=== PATIENT | female | born 1965 | race African-American/Black ===

== ENCOUNTER 2019-03-02 08:00 | Outpatient (CLI) | payer MEDICAID | END 2019-03-02 08:01 | disposition home or self-care (01) | LOC: LAB.N 08:00 | PROVIDERS: ATTEND Physician Assistant Medical | DX: Z53.9 Procedure and treatment not carried out, unspecified reason (principal) | CPT/HCPCS: 36415; 80053; 80061; 83721; 84443; 85025 ==

== ENCOUNTER 2019-03-04 08:00 | Outpatient (CLI) | payer MEDICAID ==
[2019-03-04 13:00] LABS: BASOPHILS % (AUTO) 0.5 %; EOSINOPHILS # (AUTO) 0.3 10^3/uL (0.0-0.7); EOSINOPHILS % (AUTO) 7.3 %; HGB - HEMOGLOBIN 13.7 g/dL (12.0-16.0); LYMPHOCYTES # (AUTO) 1.7 10^3/uL (1.5-3.5); LYMPHOCYTES % (AUTO) 40.3 %; MEAN CORPUSCULAR HEMOGLOBIN 30.9 pg (27.0-31.0); MEAN CORPUSCULAR HGB CONC 32.7 g/dL (32.0-36.0); MEAN CORPUSCULAR VOLUME 94.6 fL (81.0-99.0); MONOCYTES # (AUTO) 0.4 10^3/uL (0.0-1.0); MONOCYTES % (AUTO) 9.1 %; NEUTROPHILS # (AUTO) 1.8 10^3/uL (1.5-6.6); NEUTROPHILS % (AUTO) 42.6 %; PLT - PLATELET COUNT 300 10^3/uL (130-450); RED BLOOD COUNT 4.43 10^6/uL (4.20-5.40); RED CELL DISTRIBUTION WIDTH 13.2 % (12.0-15.0); WHITE BLOOD COUNT 4.3 x10^3/uL (4.8-10.8)
[2019-03-04 17:30] LABS: ALBUMIN 3.9 g/dL (3.2-5.5); ALBUMIN/GLOBULIN RATIO 1.1 (1.0-2.2); ALKALINE PHOSPHATASE 175 IU/L (42-121); ALT ALANINE AMINOTRANSFERASE 67 IU/L (10-60); AST ASPARTATE AMINOTRANSFERASE 69 IU/L (10-42); BILIRUBIN,TOTAL 1.3 mg/dL (0.2-1.0); BUN - BLOOD UREA NITROGEN 11 mg/dL (6-20); CALCIUM 9.7 mg/dL (8.5-10.3); CARBON DIOXIDE - CO2 29 mmol/L (21-32); CHLORIDE 101 mmol/L (101-111); CHOL/HDL RATIO 4.6 (<4.4); CHOLESTEROL 315 mg/dL; CREATININE 0.8 mg/dL (0.4-1.0); GFR - MDRD 90 (>89); GLUCOSE 93 mg/dL (70-100); HDL CHOLESTEROL 68 mg/dL; LDL CHOLESTEROL,CALCULATED 228 mg/dL; LDL/HDL RATIO 3.4 (<4.4); SODIUM 141 mmol/L (135-145); TOTAL PROTEIN 7.5 g/dL (6.7-8.2); VLDL CHOLESTEROL 19 mg/dL
== END 2019-03-04 08:01 | disposition home or self-care (01) ==
LOC: LAB.N 08:00
PROVIDERS: ATTEND Physician Assistant Medical
DX: I10 Essential (primary) hypertension (principal); E66.9 Obesity, unspecified
CPT/HCPCS: 36415; 80053; 80061; 83721; 84443; 85025

== ENCOUNTER 2019-03-07 13:41 | Outpatient (CLI) | payer MEDICAID ==
--- NOTE | 2019-03-08 08:25 | Mammography Report ---
Reason: SCREENING MAMMO Procedure Date: 03/07/2019 Accession Number: [id number] / [id number] Procedure: MGN - Screening Mammo Dig Bilat CPT Code: FULL RESULT: EXAM: Screening Mammo Dig Bilat DATE: 03/07/2019 2:19 PM CLINICAL HISTORY: Screening encounter. History of early menses. Family history of breast cancer in a sister at the age of 43. Baseline mammogram. TECHNIQUE: (B) - Bilateral CC, laterally exaggerated CC, MLO views were obtained. Cleavage view was obtained COMPARISON: None PARENCHYMAL PATTERN: (A) - The breast(s) demonstrate(s) scattered fibroglandular densities. FINDINGS: In the right posterior central breast 17 cm from the nipple on MLO projection and 13 cm from the nipple on CC projection is a hypodense nodule with calcifications which requires spot magnification views and potentially ultrasound for characterization, nodule is partially obscured, no more than 5 mm in size. In the left upper outer breast along the axillary tail region, 11.6 cm from the nipple on the MLO projection and 19 cm from the nipple on the CC projection is a isodense relatively well circumscribed 6 mm nodule which requires additional spot views and potentially ultrasound for clarification. IMPRESSION: Incomplete examination. BI-RADS category 0. RECOMMENDATION: (ADDMU) - Additional views using both Mammography and Ultrasound recommended. Right spot magnification views and left spot views, ultrasound potentially on both sides. BI-RADS CATEGORY: (0) - Incomplete Examination - need additional evaluation. STANDARD QUALIFYING STATEMENTS: 1. This examination was not reviewed with the aid of Computer-Aided Detection (CAD). 2. A negative or benign imaging report should not preclude biopsy if clinically suspicious findings are present. 3. Dense breasts may obscure an underlying neoplasm. 4. This examination was reviewed without the aid of 3D breast imaging (tomosynthesis).
== END 2019-03-07 13:42 | disposition home or self-care (01) ==
LOC: DI.N 13:41
PROVIDERS: ATTEND Physician Assistant Medical
DX: Z12.31 Encounter for screening mammogram for malignant neoplasm of breast (principal); Z80.3 Family history of malignant neoplasm of breast
CPT/HCPCS: 77067

== ENCOUNTER 2019-03-18 10:05 | Outpatient (CLI) | payer MEDICAID ==
--- NOTE | 2019-03-18 14:31 | Mammography Report ---
Reason: ABNORMAL MAMMOGRAM Procedure Date: 03/18/2019 Accession Number: [id number] / [id number] Procedure: [facility] - Diag Special Views Dig Bilat CPT Code: FULL RESULT: EXAM: Diag Special Views Dig Bilat DATE: 03/18/2019 11:35 AM CLINICAL HISTORY: Diagnostic examination. The patient is recalled from screening examination for left-sided nodule and right-sided calcifications. TECHNIQUE: (B) - Bilateral right magnified CC, left spot CC, left spot MLO, right ML and left ML and right magnified ML views are obtained. Focused left breast ultrasound is performed. COMPARISON: 03/07/2019. PARENCHYMAL PATTERN: (A) - The breast(s) demonstrate(s) scattered fibroglandular densities. FINDINGS: Spot magnification views further characterize the left lateral breast nodule as well circumscribed, isodense and potentially centrally lucent. Focused left breast ultrasound of the lateral left breast reveals normal appearing lymph node 22 cm from the nipple which potentially corresponds to the mammographic finding. No suspicious findings are made sonographically. These findings are typically benign. In the right breast, spot magnification views demonstrate the initially identified focus of calcifications and a nearby second grouping of calcifications both of which are formally indeterminate but probably benign given absence of associated architectural distortion or soft tissue nodule component. There are no suspicious masses, calcifications, or areas of distortion. IMPRESSION: Left breast: Benign findings. BI-RADS category 2. Right breast: Probably Benign. BI-RADS category 3. RECOMMENDATION: (6MOS) - Recommend 6 month follow-up exam. Spot magnification views of the right breast. BI-RADS CATEGORY: Left breast: BI-RADS Category 2, right breast: BI-RADS Category 3 STANDARD QUALIFYING STATEMENTS: 1. This examination was not reviewed with the aid of Computer-Aided Detection (CAD). 2. A negative or benign imaging report should not preclude biopsy if clinically suspicious findings are present. 3. Dense breasts may obscure an underlying neoplasm. 4. This examination was reviewed with the aid of 3D breast imaging (tomosynthesis).
== END 2019-03-18 10:06 | disposition home or self-care (01) ==
LOC: DI 10:05
PROVIDERS: ATTEND Physician Assistant Medical
DX: R92.8 Other abnormal and inconclusive findings on diagnostic imaging of breast (principal)
CPT/HCPCS: 76642; 77062; 77066

== ENCOUNTER 2019-06-02 07:58 | Outpatient (CLI) | payer MEDICAID ==
[2019-06-02 12:41] LABS: BUN - BLOOD UREA NITROGEN 16 mg/dL (6-20); CALCIUM 9.9 mg/dL (8.5-10.3); CARBON DIOXIDE - CO2 32 mmol/L (21-32); CHLORIDE 102 mmol/L (101-111); CHOL/HDL RATIO 2.9 (<4.4); CHOLESTEROL 190 mg/dL; CREATININE 0.8 mg/dL (0.4-1.0); GFR - MDRD 90 (>89); GLUCOSE 91 mg/dL (70-100); HDL CHOLESTEROL 66 mg/dL; LDL CHOLESTEROL,CALCULATED 104 mg/dL; LDL/HDL RATIO 1.6 (<4.4); SODIUM 142 mmol/L (135-145); VLDL CHOLESTEROL 20 mg/dL
== END 2019-06-02 07:59 | disposition home or self-care (01) ==
LOC: LAB.N 07:58
PROVIDERS: ATTEND Physician Assistant Medical
DX: I10 Essential (primary) hypertension (principal); E78.5 Hyperlipidemia, unspecified
CPT/HCPCS: 36415; 80048; 80061; 83721

== ENCOUNTER 2019-10-26 12:58 | Outpatient (CLI) | payer MEDICAID ==
--- NOTE | 2019-10-26 15:18 | Mammography Report ---
Reason: ABN MAMMO - 6 MONTH F U Procedure Date: 10/26/2019 Accession Number: [id number] / [id number] Procedure: JACEY - Diagnostic Dig RT CPT Code: Final Report FULL RESULT: EXAM: Diagnostic Dig RT DATE: 10/26/2019 2:13 PM CLINICAL HISTORY: Six-month follow-up right breast microcalcifications. TECHNIQUE: (R) - Right CC and MLO views were obtained. COMPARISON: 03/18/2019 and 03/07/2019 PARENCHYMAL PATTERN: (A) - The breasts demonstrate scattered fibroglandular densities bilaterally. FINDINGS: 2 subcentimeter clusters of microcalcifications are seen in the right 12:00 position approximately 7 and 18 cm from the nipple. The more posterior calcifications have been previously magnified and appear to have increased slightly both in number and pleomorphism. The anterior cluster has not been previously magnified but has a similar pleomorphic appearance. No associated soft tissue mass is seen. IMPRESSION: Suspicious findings. BI-RADS category 4. Suggest stereotactic core biopsy of the 2 microcalcification clusters in the right breast. Discussed with the patient. RECOMMENDATION: (BIOPSY) - Stereotactic core biopsy of 2 clusters of right breast microcalcification is suggested. BI-RADS CATEGORY: (4) - Suspicious. Results called to Karsten Ward PA-C 3:15 PM 10/26/2019 STANDARD QUALIFYING STATEMENTS: 1. This examination was not reviewed with the aid of Computer-Aided Detection (CAD). 2. A negative or benign imaging report should not preclude biopsy if clinically suspicious findings are present. 3. Dense breasts may obscure an underlying neoplasm. 4. This examination was reviewed with the aid of 3D breast imaging (tomosynthesis).
== END 2019-10-26 12:59 | disposition home or self-care (01) ==
LOC: DI 12:58
PROVIDERS: ATTEND Physician Assistant Medical
DX: R92.0 Mammographic microcalcification found on diagnostic imaging of breast (principal)

== ENCOUNTER 2019-12-07 11:46 | Outpatient (CLI) | payer MEDICAID ==
[~2019-12-07 11:46] MED LIST: BUFFERED LIDOCAINE 10 ML SYRINGE ONE
[2019-12-07] MEDS ORDERED: BUFFERED LIDOCAINE 10 ML SYRINGE ONE ×2 (12:00→14:12)
--- NOTE | 2019-12-07 14:38 | Mammography Report ---
Reason: RIGHT BREAST CALCS Procedure Date: 12/07/2019 Accession Number: [id number] / [id number] Procedure: JACEY - Stereotactic Core BX RT CPT Code: Final Report FULL RESULT: EXAM: Stereotactic Core BX RT, Stereotactic Core BX RT DATE: 12/07/2019 2:27 PM CLINICAL HISTORY: RIGHT BREAST CALCS COMPARISON: 10/26/2019. CLINICAL DATA: Target calcifications measuring less than 1 cm in the 12 o'clock axis of the right breast approximately 7 cm from the nipple. Target calcifications measuring less than 1 cm in the 12 o'clock axis of the right breast approximately 18 cm from the nipple. Informed consent was obtained. The patient was positioned in the mammography machine with biopsy attachment. Targeting imaging was obtained and the lesion was selected. The breast was approached from the lateral aspect. Using standard aseptic technique, 1% buffered lidocaine was injected into the breasts for local anesthesia. A small leandro was made in the skin with a #11 blade. A 9-gauge vacuum-assisted device was advanced into the breasts towards the target and confirmatory imaging was obtained to verify targeting and 16 specimens were obtained. Specimen radiography was performed which demonstrated the presence of calcifications in the sample. A biopsy marker clip was then placed into the biopsy cavity. The biopsy device was subsequently removed from the breast. Hemostasis was achieved. The same procedure was repeated for the second site using the lateral approach. Follow-up 3-D mammography was then performed to verify biopsy targeting and clip placement at both sites. The mammography showed expected clip position and postbiopsy changes from both biopsy sites . The wound was dressed and ice applied. The patient was observed for approximately 15 minutes, then discharged from the diagnostic imaging Department in stable condition following instructions on wound care and obtaining biopsy results. The tissue was sent for histologic analysis. IMPRESSION: Stereotactic biopsy of calcifications at 2 sites in the right breast. RADIA
[2019-12-07] MEDS ORDERED: BUFFERED LIDOCAINE 10 ML SYRINGE IU ONE (17:10)
== END 2019-12-07 11:47 | disposition home or self-care (01) ==
LOC: DI 11:46
PROVIDERS: ATTEND Physician Assistant Medical
DX: R92.0 Mammographic microcalcification found on diagnostic imaging of breast (principal)
CPT/HCPCS: 19081; 19082

== ENCOUNTER 2020-01-31 17:00 | Outpatient (CLI) | payer MEDICAID ==
[2020-01-31 18:45] LABS: ALBUMIN 4.4 g/dL (3.2-5.5); ALBUMIN/GLOBULIN RATIO 1.2 (1.0-2.2); BILIRUBIN,TOTAL 1.2 mg/dL (0.2-1.0); CALCIUM 10.1 mg/dL (8.5-10.3); CREATININE 0.8 mg/dL (0.4-1.0)
== END 2020-01-31 23:59 | disposition home or self-care (01) ==
LOC: LAB.WCP 17:00
PROVIDERS: ATTEND Family Medicine
DX: R74.8 Abnormal levels of other serum enzymes (principal)
CPT/HCPCS: 36415; 80053

== ENCOUNTER 2020-05-18 08:00 | Outpatient (CLI) | payer MEDICAID ==
[2020-05-18 18:46] LABS: ALBUMIN 4.1 g/dL (3.2-5.5); BILIRUBIN,DIRECT 0.1 mg/dL (0.1-0.5); BILIRUBIN,TOTAL 0.8 mg/dL (0.2-1.0); TOTAL PROTEIN 7.7 g/dL (6.7-8.2)
[2020-05-19 13:12] LABS: HEPATITIS B SURFACE ANTIGEN NON-REACTIVE (NON-REACTIVE); HEPATITIS C ANTIBODY NON-REACTIVE (NON-REACTIVE)
== END 2020-05-18 08:01 | disposition home or self-care (01) ==
LOC: LAB.WCP 08:00
PROVIDERS: ATTEND Family Medicine
DX: R74.8 Abnormal levels of other serum enzymes (principal)
CPT/HCPCS: 36415; 80076; 86317; 86704; 86709; 86803; 87340

== ENCOUNTER 2020-05-26 09:16 | Outpatient (CLI) | payer MEDICAID ==
--- NOTE | 2020-05-26 14:29 | Ultrasound Report ---
PROCEDURE: Abdomen Complete INDICATIONS: ELEVATED LIVER ENZYMES TECHNIQUE: Real-time scanning was performed of the abdominal and retroperitoneal organs, with image documentatio n. COMPARISON: None. FINDINGS: Liver: Liver is normal in size and heterogeneous in echotexture, with a coarsened echotexture. Gallbladder: No gallstones or significant sludge can be seen. The gallbladder wall does not appear th ickened. There is no specific pericholecystic fluid. The sonographic Wang's sign is negative. Biliary ducts: Intrahepatic bile ducts are dilated. Extrahepatic bile duct caliber 14 mm. Normal i s 6-7 mm or less in diameter, or 10 mm or less post-cholecystectomy. Pancreas: Visualized portions of the pancreas are sonographically normal. Spleen: Spleen is normal in size and homogeneous in echotexture. Within the posterior lateral splee n, there is a 5 mm hyperechoic focus seen. Kidneys: Kidneys are normal in size and echotexture. Right kidney measures 11.8 cm long; left kidne y measures 11.2 cm long. No hydronephrosis or nephrolithiasis. No solid masses. Aorta: Visualized aorta is normal in caliber at less than 3 cm. Iliacs: Proximal common iliac arteries are normal in caliber at less than 2.5 cm. IVC: Intrahepatic inferior vena cava is patent. Miscellaneous: No free abdominal fluid. IMPRESSION: Dilated common bile duct measuring up to 14 mm. If clinically appropriate, please consider a dedicate d MRCP for further evaluation (assuming that there is no contraindication). Increased liver echogenicity is seen. This is nonspecific, yet it is most commonly attributed to fatt y infiltration. 5 mm hyperechoic focus within the posterior lateral spleen. The clinical significance of this is unce rtain. Reviewed by: Kevin Tellez MD on 05/26/2020 1:27 PM TEJAS Approved by: Kevin Tellez MD on 05/26/2020 1:27 PM AKDANTE Station ID: [id number]
== END 2020-05-26 09:17 | disposition home or self-care (01) ==
LOC: DI 09:16
PROVIDERS: ATTEND Family Medicine
DX: K83.8 Other specified diseases of biliary tract (principal); R93.2 Abnormal findings on diagnostic imaging of liver and biliary tract; R93.5 Abnormal findings on diagnostic imaging of other abdominal regions, including retroperitoneum
CPT/HCPCS: 76700

== ENCOUNTER 2020-06-23 08:15 | Outpatient (CLI) | payer MEDICAID ==
--- NOTE | 2020-06-25 11:00 | MRI Report ---
PROCEDURE: MRCP W/O INDICATIONS: ELEVATED LIVER ENZYMES CONTRAST: TECHNIQUE: Coronal ultra fast SE through the abdomen, axial 2-D spoiled GE in- and [id number], and breath-hold T2 FSE with fat saturation through the biliary system and pancreas. Oblique coronal and axial thin- slice ultra fast SE, radial thick-slab ultra fast SE centered on the extrahepatic bile ducts. COMPARISON: Prior ultrasound 05/26/2020 documenting a 1.4 cm common bile duct. FINDINGS: Image quality: Diagnostic, but reduced in anatomic detail by body habitus.. Pancreas and biliary system: Intra- and extra-hepatic biliary ducts are both dilated, to mildly grea ter degree than seen by ultrasound approximately one month ago. The common duct measures up to 1.6-1. 7 cm in maximal dimension, and the cystic duct also is dilated as are the intrahepatic ducts both on the right and left. At the distal common duct 3 separate pulse sequences appear to show a 2 x 3 mm ca lculus dependently positioned within the common duct above the level of the ampulla. This is best see n on the source coronal acquisition images from which the mixed projections are generated. There is, however, what appears to be shouldering of the distal common duct with a thin exit point measuring on ly approximately 2 mm in diameter versus 1.6 cm above. This also is best seen on the coronal source c holangiographic MR imaging just below the level of the intraluminal calculus. Pancreas is normal in morphology, without adjacent soft tissue edema. Pancreatic duct is normal in caliber, without develo pmental anomalies. Gallbladder is not seen to contain a intraluminal calculus. Other solid organs: Liver and spleen are normal in size. No adrenal nodules. Both kidneys are norm al in size, without hydronephrosis. Nodes and vessels: No retroperitoneal or mesenteric adenopathy by size criteria. Aorta and inferior vena cava are normal in size. Bowel and peritoneum: Unenhanced bowel loops are normal in caliber. No free fluid. Lung bases: No basal pleural effusions. Heart size is normal. Bones and soft tissues: No ventral hernias. Bone marrow is of normal overall signal. IMPRESSION: 1. Resolution of cholangiographic imaging is somewhat limited by body habitus. There does, however, a ppear to be definite abnormal common bile duct and intrahepatic biliary distention with reference to the prior ultrasound from one month ago. 2. Within the distal common duct there appears to be a 2 x 3 mm intraluminal calculus. Currently at t angie of imaging this calculus does not appear impacted within the distal common duct, however. 3. A second potential etiology of the increasing biliary distention in this patient is what appears t o be "shouldering" of the distal common duct through which a 2 mm lumen extends for an 8 mm craniocau dad length. This raises concern for presence of a distal common duct neoplasm either at the ductal mu cosal level or possibly at the pancreatic head level immediately adjacent. 4. High-resolution pancreatic protocol CT scanning without and with intravenous contrast likely is wa rranted in this patient given the findings discussed above and the progression of disease over the pr ior month. Reviewed by: Ronnie Pino MD on 06/25/2020 10:59 AM PST Approved by: Ronnie Pino MD on 06/25/2020 10:59 AM PST Station ID: [id number]
== END 2020-06-23 08:16 | disposition home or self-care (01) ==
LOC: DI 08:15
PROVIDERS: ATTEND Family Medicine
DX: R93.2 Abnormal findings on diagnostic imaging of liver and biliary tract (principal)
CPT/HCPCS: 74181

== ENCOUNTER 2020-07-21 09:26 | Outpatient (CLI) | payer MEDICAID ==
[2020-07-21] MEDS ORDERED: IOVERSOL 320 100 ML VIAL IVP ONE ×2 (09:52→10:33)
[2020-07-21 10:00] LABS: CREATININE 0.9 mg/dL (0.4-1.0)
--- NOTE | 2020-07-21 11:29 | CT Report ---
PROCEDURE: ABDOMEN W/WO INDICATIONS: MASS OF PANCREAS, CHOLEDOCHOLITHIASIS CONTRAST: IV CONTRAST: Optiray 320 ml: 100 PO CONTRAST: *NO PO CONTRAST TECHNIQUE: 4 phase scanning was performed. After the administration of intravenous contrast, 5 mm thick section s acquired from the diaphragm to the symphysis. 5 mm coronal and sagittal reformats were acquired. For radiation dose reduction, the following was used: automated exposure control, adjustment of mA a nd/or kV according to patient size. COMPARISON: MRCP 06/23/2020. Abdominal ultrasound 05/26/2020. FINDINGS: Image quality: Excellent. Lung bases: Suspect mild bibasilar atelectasis. No pleural effusion. Heart size is normal. Liver: Noncirrhotic morphology. Suspect hepatic steatosis. No focal lesion. Other solid organs: Gallbladder is not distended. No calcified gallstones. There is persistent intr a and extrahepatic biliary ductal dilatation. CBD measures 1.4 cm, (15/16), remeasured on MRCP 1.3 cm . There is an abrupt transition of the CBD at the level of the pancreatic head. No obvious mass or ca lcified stone. The pancreatic duct is not dilated. There is minimal ill-defined hypodensity in the re gion of the sphincter of Rolo, (3/32), corresponding to minimal T2 hyperintensity on the prior MRI. P ancreatic enhancement otherwise appears uniform. No peripancreatic fluid collection. Spleen is normal in size and enhancement. Small splenule. No adrenal nodules. Both kidneys demonstra te normal size and enhancement, without hydronephrosis or nephrolithiasis. Nodes and vessels: No retroperitoneal or mesenteric adenopathy by size criteria. Aorta and inferior vena cava are normal in size. Conventional and patent hepatic arterial anatomy. Bowel and peritoneum: Unenhanced bowel loops are normal in caliber. No free fluid or air. Bones: No suspicious bony lesions. Mild DDD. No vertebral body compression fractures. Miscellaneous: No ventral hernias. IMPRESSION: 1. Persistent similar intra and extra hepatic ductal or ductal dilatation. Abrupt caliber transition of the CBD. Minimal hypodensity in the region of the sphincter of Rolo. Findings could be due to bili sera/pancreatic neoplasm, annular pancreas, less likely noncalcified stone. -Recommend ERCP for further evaluation. 2. No focal hepatic lesion. No adenopathy. 3. No pancreatic ductal dilatation seen. Reviewed by: Clayton Toro MD on 07/21/2020 10:28 AM NILSA Approved by: Clayton Toro MD on 07/21/2020 10:28 AM [facility] Station ID: [id number]
== END 2020-07-21 09:27 | disposition home or self-care (01) ==
LOC: LAB 09:26
PROVIDERS: ATTEND Family Medicine
DX: K83.8 Other specified diseases of biliary tract (principal); R93.2 Abnormal findings on diagnostic imaging of liver and biliary tract; K86.89 Other specified diseases of pancreas; K80.50 Calculus of bile duct without cholangitis or cholecystitis without obstruction
CPT/HCPCS: 74170; 82565; Q9967

== ENCOUNTER 2020-08-23 08:00 | Outpatient (CLI) | payer MEDICAID | END 2020-08-23 23:59 | disposition home or self-care (01) | LOC: LAB.R 08:00 | PROVIDERS: ATTEND Physician Assistant | DX: Z12.11 Encounter for screening for malignant neoplasm of colon (principal) | CPT/HCPCS: 82274 ==

== ENCOUNTER 2020-11-09 08:00 | Outpatient (CLI) | payer MEDICAID ==
[2020-11-09 18:34] LABS: BASOPHILS % (AUTO) 0.6 %; EOSINOPHILS # (AUTO) 0.2 10^3/uL (0.0-0.7); HGB - HEMOGLOBIN 13.7 g/dL (12.0-16.0); LYMPHOCYTES # (AUTO) 2.4 10^3/uL (1.5-3.5); LYMPHOCYTES % (AUTO) 49.8 %; MEAN CORPUSCULAR HEMOGLOBIN 31.4 pg (27.0-31.0); MEAN CORPUSCULAR HGB CONC 33.4 g/dL (32.0-36.0); MEAN CORPUSCULAR VOLUME 93.8 fL (81.0-99.0); MEAN PLATELET VOLUME 11.4 fL (7.9-10.8); MONOCYTES # (AUTO) 0.3 10^3/uL (0.0-1.0); MONOCYTES % (AUTO) 6.4 %; NEUTROPHILS # (AUTO) 1.8 10^3/uL (1.5-6.6); NEUTROPHILS % (AUTO) 38.2 %; PLT - PLATELET COUNT 230 10^3/uL (130-450); RED BLOOD COUNT 4.37 10^6/uL (4.20-5.40); RED CELL DISTRIBUTION WIDTH 13.2 % (12.0-15.0); WHITE BLOOD COUNT 4.8 x10^3/uL (4.8-10.8)
[2020-11-09 19:06] LABS: ALBUMIN 4.3 g/dL (3.2-5.5); ALBUMIN/GLOBULIN RATIO 1.4 (1.0-2.2); CALCIUM 9.9 mg/dL (8.5-10.3); POTASSIUM 3.9 mmol/L (3.5-5.0); TOTAL PROTEIN 7.4 g/dL (6.7-8.2)
== END 2020-11-09 23:59 | disposition home or self-care (01) ==
LOC: LAB.WCP 08:00
DX: K83.9 Disease of biliary tract, unspecified (principal)
CPT/HCPCS: 36415; 80053; 82378; 85025; 86301

== ENCOUNTER 2020-12-04 16:28 | Outpatient (CLI) | payer MEDICAID | END 2020-12-04 16:29 | disposition home or self-care (01) | LOC: COV 16:28 | PROVIDERS: ATTEND Family Medicine | DX: Z01.812 Encounter for preprocedural laboratory examination (principal); K83.8 Other specified diseases of biliary tract; Z20.822 Contact with and (suspected) exposure to COVID-19 ==

== ENCOUNTER 2020-12-25 08:00 | Outpatient (CLI) | payer MEDICAID ==
[2020-12-25 11:57] LABS: BASOPHILS % (AUTO) 0.4 %; EOSINOPHILS # (AUTO) 0.7 10^3/uL (0.0-0.7); EOSINOPHILS % (AUTO) 15.9 %; HCT - HEMATOCRIT 37.7 % (37.0-47.0); HGB - HEMOGLOBIN 12.7 g/dL (12.0-16.0); LYMPHOCYTES # (AUTO) 1.6 10^3/uL (1.5-3.5); LYMPHOCYTES % (AUTO) 34.4 %; MEAN CORPUSCULAR HEMOGLOBIN 31.6 pg (27.0-31.0); MEAN CORPUSCULAR HGB CONC 33.7 g/dL (32.0-36.0); MEAN CORPUSCULAR VOLUME 93.8 fL (81.0-99.0); MEAN PLATELET VOLUME 10.4 fL (7.9-10.8); MONOCYTES # (AUTO) 0.4 10^3/uL (0.0-1.0); MONOCYTES % (AUTO) 8.1 %; NEUTROPHILS # (AUTO) 1.9 10^3/uL (1.5-6.6); PLT - PLATELET COUNT 342 10^3/uL (130-450); RED BLOOD COUNT 4.02 10^6/uL (4.20-5.40); RED CELL DISTRIBUTION WIDTH 13.5 % (12.0-15.0); WHITE BLOOD COUNT 4.6 x10^3/uL (4.8-10.8)
[2020-12-25 12:36] LABS: ALKALINE PHOSPHATASE 157 IU/L (42-121); AST ASPARTATE AMINOTRANSFERASE 61 IU/L (10-42); CALCIUM 9.7 mg/dL (8.5-10.3); CARBON DIOXIDE - CO2 31 mmol/L (21-32); CHLORIDE 102 mmol/L (101-111); CHOLESTEROL 133 mg/dL; GLUCOSE 101 mg/dL (70-100); POTASSIUM 3.8 mmol/L (3.5-5.0); SODIUM 141 mmol/L (135-145)
[2020-12-25 12:43] LABS: ESTIMATED AVERAGE GLUCOSE 111 mg/dL (70-100); HEMOGLOBIN A1c% 5.5 % (4.27-6.07)
[2020-12-25 13:19] LABS: ALBUMIN 3.7 g/dL (3.2-5.5); ALBUMIN/GLOBULIN RATIO 1.1 (1.0-2.2); ALT ALANINE AMINOTRANSFERASE 79 IU/L (10-60); BILIRUBIN,TOTAL 0.8 mg/dL (0.2-1.0); BUN - BLOOD UREA NITROGEN 10 mg/dL (6-20); CHOL/HDL RATIO 3.2 (<4.4); CREATININE 0.8 mg/dL (0.4-1.0); GFR - MDRD 90 (>89); HDL CHOLESTEROL 41 mg/dL; LDL CHOLESTEROL,CALCULATED 71 mg/dL; LDL/HDL RATIO 1.7 (<4.4); TOTAL PROTEIN 7.2 g/dL (6.7-8.2); TRIGLYCERIDES 106 mg/dL; VLDL CHOLESTEROL 21 mg/dL
== END 2020-12-25 23:59 | disposition home or self-care (01) ==
LOC: LAB.WCP 08:00
PROVIDERS: ATTEND Family Medicine
DX: E78.5 Hyperlipidemia, unspecified (principal); R74.8 Abnormal levels of other serum enzymes; E66.9 Obesity, unspecified
CPT/HCPCS: 36415; 80053; 80061; 83036; 83721; 85025

== ENCOUNTER 2021-02-01 13:26 | Outpatient (CLI) | payer MEDICAID | END 2021-02-01 13:27 | disposition home or self-care (01) | LOC: COV 13:26 | PROVIDERS: ATTEND Family Medicine | DX: Z01.812 Encounter for preprocedural laboratory examination (principal); Z20.822 Contact with and (suspected) exposure to COVID-19 ==

== ENCOUNTER 2021-06-17 16:44 | Outpatient (CLI) | payer MEDICAID | END 2021-06-17 16:45 | disposition home or self-care (01) | LOC: COV 16:44 | PROVIDERS: ATTEND Family Medicine | DX: Z01.812 Encounter for preprocedural laboratory examination (principal); Z20.822 Contact with and (suspected) exposure to COVID-19 ==

== ENCOUNTER 2021-08-05 08:00 | Outpatient (CLI) | payer MEDICAID ==
[2021-08-05 17:43] LABS: BASOPHILS % (AUTO) 0.5 %; EOSINOPHILS # (AUTO) 0.3 10^3/uL (0.0-0.7); EOSINOPHILS % (AUTO) 6.8 %; HCT - HEMATOCRIT 44.9 % (37.0-47.0); HGB - HEMOGLOBIN 15.1 g/dL (12.0-16.0); LYMPHOCYTES # (AUTO) 1.9 10^3/uL (1.5-3.5); LYMPHOCYTES % (AUTO) 52.7 %; MEAN CORPUSCULAR HEMOGLOBIN 31.3 pg (27.0-31.0); MEAN CORPUSCULAR HGB CONC 33.6 g/dL (32.0-36.0); MEAN CORPUSCULAR VOLUME 93.2 fL (81.0-99.0); MEAN PLATELET VOLUME 11.2 fL (7.9-10.8); MONOCYTES # (AUTO) 0.2 10^3/uL (0.0-1.0); MONOCYTES % (AUTO) 6.3 %; NEUTROPHILS # (AUTO) 1.2 10^3/uL (1.5-6.6); NEUTROPHILS % (AUTO) 33.4 %; PLT - PLATELET COUNT 240 10^3/uL (130-450); RED BLOOD COUNT 4.82 10^6/uL (4.20-5.40); RED CELL DISTRIBUTION WIDTH 13.3 % (12.0-15.0); WHITE BLOOD COUNT 3.7 x10^3/uL (4.8-10.8)
[2021-08-05 17:50] LABS: ALBUMIN 4.2 g/dL (3.2-5.5); ALBUMIN/GLOBULIN RATIO 1.1 (1.0-2.2); BILIRUBIN,TOTAL 0.7 mg/dL (0.2-1.0); CALCIUM 9.8 mg/dL (8.5-10.3); CREATININE 0.7 mg/dL (0.4-1.0); POTASSIUM 3.7 mmol/L (3.5-5.0)
[2021-08-05 18:07] LABS: THYROID STIMULATING HORMONE 0.68 uIU/mL (0.34-5.60)
== END 2021-08-05 23:59 | disposition home or self-care (01) ==
LOC: LAB.WCP 08:00
PROVIDERS: ATTEND Family Medicine
DX: R74.8 Abnormal levels of other serum enzymes (principal); E04.1 Nontoxic single thyroid nodule; K85.90 Acute pancreatitis without necrosis or infection, unspecified
CPT/HCPCS: 36415; 80053; 84443; 85025

== ENCOUNTER 2022-12-23 15:39 | Outpatient (CLI) | payer MEDICAID ==
--- NOTE | 2022-12-25 11:21 | Mammography Report ---
BILATERAL DIGITAL SCREENING MAMMOGRAM 3D/2D: 12/23/2022 CLINICAL: Family history of breast cancer. Routine screening. Comparison is made to exams dated: 11/11/2021 mammogram, 10/26/2019 mammogram, 03/18/2019 mammogram, and 03/07/2019 mammogram - [facility]. There are scattered areas of fibroglandular density in both breasts (category b / 25%-50% glandular t issue). There are biopsy clips in the right breast. No significant masses, calcifications, or other findings are seen in either breast. There has been no significant interval change. IMPRESSION: NEGATIVE There is no mammographic evidence of malignancy. A 1 year screening mammogram is recommended. Based on the Tyrer Cuzick model (a risk assessment model) the patients lifetime risk is 18.7% and he r 10 year risk is 7.5%. According to the ACR, ACS, and NCCN guidelines, an annual breast MRI exam pauline ng with mammogram is recommended if the patients lifetime risk is 20% or greater. This exam was interpreted at Station ID: [id number]. NOTE: For mammograms, a report in lay terms will be sent to the patient. Approximately 15% of breast malignancies will not be visualized mammographically. In the management of a palpable breast mass, a negative mammogram must not discourage biopsy of a clinically suspicious lesion. Electronically Signed By: Clayton yusuf/zander:12/24/2022 13:58:18 letter sent: No_Letter ACR BI-RADS Category 1: Negative 3341F PARENCHYMAL PATTERN: (A) - The breast(s) demonstrate(s) scattered fibroglandular densities. BI-RADS CATEGORY: (1) - 1 Mammogram 20231224 1 year screening LATERALITY: (B)
== END 2022-12-23 15:40 | disposition home or self-care (01) ==
LOC: DI.N 15:39
DX: Z12.31 Encounter for screening mammogram for malignant neoplasm of breast (principal); Z80.3 Family history of malignant neoplasm of breast

== ENCOUNTER 2022-12-23 16:05 | Outpatient (CLI) | payer MEDICAID ==
[2022-12-23 17:48] LABS: BASOPHILS % (AUTO) 0.6 %; EOSINOPHILS # (AUTO) 0.2 10^3/uL (0.0-0.7); EOSINOPHILS % (AUTO) 4.5 %; HCT - HEMATOCRIT 42.1 % (37.0-47.0); HGB - HEMOGLOBIN 14.1 g/dL (12.0-16.0); LYMPHOCYTES # (AUTO) 2.7 10^3/uL (1.5-3.5); LYMPHOCYTES % (AUTO) 52.3 %; MEAN CORPUSCULAR HEMOGLOBIN 31.1 pg (27.0-31.0); MEAN CORPUSCULAR HGB CONC 33.5 g/dL (32.0-36.0); MEAN CORPUSCULAR VOLUME 92.7 fL (81.0-99.0); MEAN PLATELET VOLUME 10.9 fL (7.9-10.8); MONOCYTES # (AUTO) 0.3 10^3/uL (0.0-1.0); MONOCYTES % (AUTO) 5.7 %; NEUTROPHILS # (AUTO) 1.9 10^3/uL (1.5-6.6); NEUTROPHILS % (AUTO) 36.9 %; PLT - PLATELET COUNT 242 10^3/uL (130-450); RED BLOOD COUNT 4.54 10^6/uL (4.20-5.40); RED CELL DISTRIBUTION WIDTH 13.2 % (12.0-15.0); WHITE BLOOD COUNT 5.1 x10^3/uL (4.8-10.8)
[2022-12-23 21:16] LABS: ALBUMIN 4.2 g/dL (3.2-5.5); ALBUMIN/GLOBULIN RATIO 1.2 (1.0-2.2); ALKALINE PHOSPHATASE 78 IU/L (42-121); ALT ALANINE AMINOTRANSFERASE 37 IU/L (10-60); AST ASPARTATE AMINOTRANSFERASE 37 IU/L (10-42); BILIRUBIN,TOTAL 1.2 mg/dL (0.2-1.0); BUN - BLOOD UREA NITROGEN 16 mg/dL (6-20); CALCIUM 9.5 mg/dL (8.5-10.3); CARBON DIOXIDE - CO2 30 mmol/L (21-32); CHLORIDE 102 mmol/L (101-111); CHOL/HDL RATIO 2.6 (<4.4); CHOLESTEROL 169 mg/dL; CREATININE 0.9 mg/dL (0.4-1.0); GFR - MDRD 78 (>89); GLUCOSE 85 mg/dL (70-100); HDL CHOLESTEROL 64 mg/dL; LDL CHOLESTEROL,CALCULATED 85 mg/dL; LDL/HDL RATIO 1.3 (<4.4); POTASSIUM 3.6 mmol/L (3.5-5.0); SODIUM 140 mmol/L (135-145); TOTAL PROTEIN 7.8 g/dL (6.7-8.2); TRIGLYCERIDES 100 mg/dL; VLDL CHOLESTEROL 20 mg/dL
[2022-12-23 22:57] LABS: THYROID STIMULATING HORMONE 0.58 uIU/mL (0.34-5.60)
[2022-12-24 16:42] LABS: ESTIMATED AVERAGE GLUCOSE 108 mg/dL (70-100); HEMOGLOBIN A1c% 5.4 % (4.27-6.07)
== END 2022-12-23 16:06 | disposition home or self-care (01) ==
LOC: LAB.N 16:05
PROVIDERS: ATTEND Nurse Practitioner Family
DX: E55.9 Vitamin D deficiency, unspecified (principal); E78.5 Hyperlipidemia, unspecified; I10 Essential (primary) hypertension; Z13.1 Encounter for screening for diabetes mellitus
CPT/HCPCS: 36415; 80053; 80061; 82306; 83036; 83721; 84443; 85025

== ENCOUNTER 2023-05-19 11:49 | Day surgery (SDC) | payer MEDICAID ==
[2023-05-19] MEDS ORDERED: PROPOFOL 500 MG/50 ML 500 MG/50 ML VIAL ONE (12:08)
[2023-05-19] MEDS ORDERED: LACTATED RINGERS 1,000 ML IV ONE (12:20)
--- NOTE | 2023-05-19 12:34 | ANESTHESIA ---
Pre-Anesthesia VS, & Labs - Diagnosis screening - Procedure colonscopy Vital Signs: Temp Pulse Resp BP Pulse Ox O2 Flow Rate 36.2 C L 66 16 131/82 H 100 05/19/23 11:55 05/19/23 11:55 05/19/23 11:55 05/19/23 11:55 05/19/23 11:55 Height: 5 ft 6 in Weight (kg): 105.7 kg Body Mass Index: 37.5 BMI Classification: Obese - NPO Other (prep at 9am) - Is Patient ?: No Home Medications and Allergies Home Medications: Ambulatory Orders Atorvastatin Calcium 40 mg PO HS 05/18/23 Latanoprost 0.005% Ophth Drops [Xalatan Ophth Drops] 1 drops EACHEYE HS 05/18/23 Dalton-3/Dha/Epa/Fish Oil [Fish Oil 500 mg Softgel] 1 tab PO DAILY 05/18/23 Timolol 0.5% Ophth Drops [Timoptic 0.5% Ophth Drops] 1 drops EACHEYE BID 05/18/23 amLODIPine [Norvasc] 10 mg PO HS 05/18/23 Atorvastatin Calcium 40 mg PO HS 05/18/23 Latanoprost 0.005% Ophth Drops [Xalatan Ophth Drops] 1 drops EACHEYE HS 05/18/23 Dalton-3/Dha/Epa/Fish Oil [Fish Oil 500 mg Softgel] 1 tab PO DAILY 05/18/23 Timolol 0.5% Ophth Drops [Timoptic 0.5% Ophth Drops] 1 drops EACHEYE BID 05/18/23 amLODIPine [Norvasc] 10 mg PO HS 05/18/23 Allergies/Adverse Reactions: Allergies Allergy/AdvReac Type Severity Reaction Status Date / Time No Known Drug Allergies Allergy Verified 05/18/23 14:10 Anes History & Medical History - Anesthetic History Anesthesia Complications: reports: No previous complications - Medical History Cardiovascular: reports: Hypertension, High cholesterol Pulmonary: reports: None Gastrointestinal: reports: Cholelithiasis Urinary: reports: None Musculoskeletal: reports: None Endocrine/Autoimmune: reports: None Skin: reports: None Smoking Status: Never smoker History of Cancer?: No - Surgical History General: reports: Cholecystectomy Exam General: Alert, Oriented x3 Dental: WNL Mouth Opening: Greater than 4 Fingerbreadths Neck Mobility: Normal Thyromental Distance: greater than 6 cm Respiratory: Lungs clear Cardiovascular: Regular rate, Normal S1, Normal S2 Mental/Cognitive Status: Alert/Oriented X3 Plan Anesthesia Type: Total IV Consent for Procedure(s) Verified and Reviewed: Yes Code Status: Attempt Resuscitation ASA classification: 2-Mild systemic disease Is this case an emergency?: No
[2023-05-19] MEDS ORDERED: SIMETHICONE 40 MG/0.6 ML 15 ML BOTTLE PO ONE (13:00)
[2023-05-19] MEDS ORDERED: LACTATED RINGERS 650 ML IV ONE (13:22)
[2023-05-19 13:58] VITALS: BP 118/84; O2SAT 98
--- NOTE | 2023-05-19 14:50 | ANESTHESIA POST OP EVALUATION ---
Anesthesia Post Eval - Post Anesthesia Eval Vitals: Last Vital Signs Temp 36.6 C 05/19/23 13:22 Pulse 61 05/19/23 13:50 Resp 16 05/19/23 13:50 BP 118/84 H 05/19/23 13:50 Pulse Ox 98 05/19/23 13:50 O2 Flow Rate CV Function Including HR & BP: Stable Pain Control: Satisfactory Nausea & Vomiting: Negative Mental Status: Baseline Respiratory Status: Airway Patent Hydration Status: Satisfactory Anesthesia Complications: None
== END 2023-05-19 11:50 | disposition home or self-care (01) ==
LOC: SDS 11:49
PROVIDERS: ATTEND Surgery
PROC: 0DBL8ZZ Excision of Transverse Colon, Via Natural or Artificial Opening Endoscopic (ICD-10-PCS; 2023-05-19)
PROC: 0DBH8ZZ Excision of Cecum, Via Natural or Artificial Opening Endoscopic (ICD-10-PCS; 2023-05-19)
PROC: 0DBK8ZZ Excision of Ascending Colon, Via Natural or Artificial Opening Endoscopic (ICD-10-PCS; principal; 2023-05-19 13:00)
DX: Z12.11 Encounter for screening for malignant neoplasm of colon (principal); D12.2 Benign neoplasm of ascending colon; K63.5 Polyp of colon; K57.30 Diverticulosis of large intestine without perforation or abscess without bleeding; E66.9 Obesity, unspecified; Z68.37 Body mass index [BMI] 37.0-37.9, adult; I10 Essential (primary) hypertension
CPT/HCPCS: 45380; 45385; A9270; J7120

== ENCOUNTER 2023-12-28 14:03 | Outpatient (CLI) | payer OTHER ==
[2023-12-28 18:09] LABS: BASOPHILS % (AUTO) 0.4 %; EOSINOPHILS # (AUTO) 0.3 10^3/uL (0.0-0.7); EOSINOPHILS % (AUTO) 5.3 %; HCT - HEMATOCRIT 37.5 % (37.0-47.0); HGB - HEMOGLOBIN 12.5 g/dL (12.0-16.0); LYMPHOCYTES # (AUTO) 2.2 10^3/uL (1.5-3.5); LYMPHOCYTES % (AUTO) 43.4 %; MEAN CORPUSCULAR HEMOGLOBIN 30.4 pg (27.0-31.0); MEAN CORPUSCULAR HGB CONC 33.3 g/dL (32.0-36.0); MEAN CORPUSCULAR VOLUME 91.2 fL (81.0-99.0); MONOCYTES # (AUTO) 0.5 10^3/uL (0.0-1.0); MONOCYTES % (AUTO) 9.9 %; NEUTROPHILS # (AUTO) 2.1 10^3/uL (1.5-6.6); NEUTROPHILS % (AUTO) 40.8 %; PLT - PLATELET COUNT 378 10^3/uL (130-450); RED BLOOD COUNT 4.11 10^6/uL (4.20-5.40); RED CELL DISTRIBUTION WIDTH 15.3 % (12.0-15.0); WHITE BLOOD COUNT 5.1 x10^3/uL (4.8-10.8)
[2023-12-28 18:31] LABS: ALBUMIN 3.7 g/dL (3.2-5.5); ALBUMIN/GLOBULIN RATIO 0.8 (1.0-2.2); ALKALINE PHOSPHATASE 1182 IU/L (42-121); ALT ALANINE AMINOTRANSFERASE 175 IU/L (10-60); AST ASPARTATE AMINOTRANSFERASE 184 IU/L (10-42); BILIRUBIN,TOTAL 1.2 mg/dL (0.2-1.0); BUN - BLOOD UREA NITROGEN 10 mg/dL (6-20); CALCIUM 10.2 mg/dL (8.5-10.3); CARBON DIOXIDE - CO2 30 mmol/L (21-32); CHLORIDE 99 mmol/L (101-111); CHOL/HDL RATIO 2.6 (<4.4); CHOLESTEROL 156 mg/dL; CREATININE 0.9 mg/dL (0.6-1.3); GFR - MDRD 77 (>89); GLUCOSE 90 mg/dL (74-104); HDL CHOLESTEROL 59 mg/dL; LDL CHOLESTEROL,CALCULATED 83 mg/dL; LDL/HDL RATIO 1.4 (<4.4); POTASSIUM 4.1 mmol/L (3.5-4.5); SODIUM 134 mmol/L (135-145); TOTAL PROTEIN 8.1 g/dL (6.4-8.9); TRIGLYCERIDES 72 mg/dL (48-352); VLDL CHOLESTEROL 14 mg/dL
[2023-12-28 18:38] LABS: THYROID STIMULATING HORMONE 0.85 uIU/mL (0.34-5.60)
[2023-12-28 21:47] LABS: ESTIMATED AVERAGE GLUCOSE 105 mg/dL (70-100); HEMOGLOBIN A1c% 5.3 % (4.27-6.07)
== END 2023-12-28 14:04 | disposition home or self-care (01) ==
LOC: LAB.N 14:03
PROVIDERS: ATTEND Nurse Practitioner Family
DX: Z00.00 Encounter for general adult medical examination without abnormal findings (principal); I10 Essential (primary) hypertension; E78.5 Hyperlipidemia, unspecified; E66.9 Obesity, unspecified
CPT/HCPCS: 36415; 80053; 80061; 83036; 83721; 84443; 85025